=== PATIENT | female | born 1965 | race Asian ===

== ENCOUNTER 2018-05-26 14:23 | Emergency (ER) | payer OTHER ==
--- NOTE | 2018-05-26 15:49 | CPEKG ---
Heart Rate: 57 RR Interval: 1053 P-R Interval: 164 QRSD Interval: 96 QT Interval: 440 QTC Interval: 429 P [place]: 56 QRS [place]: 66 T Wave [place]: 11 EKG Severity - BORDERLINE ECG - EKG Impression: SINUS RHYTHM EKG Impression: PROBABLE LEFT ATRIAL ABNORMALITY Electronically Signed By: Jyothi Nguyen 27-May-2018 00:43:17
[2018-05-26] MEDS ORDERED: NS 500 ML IV ONE (16:04)
--- NOTE | 2018-05-26 16:08 | EDPHY ---
HPI/HX/ROS/PE/MDM Narrative: CHIEF COMPLAINT: Dizziness HISTORY OF PRESENT ILLNESS: The patient is a 52 y/o female arriving with her family complaining of acute onset dizziness and near-syncope around 13:00 today , about 4 hours ago. She was standing at work when symptoms began. She describes room-spinning dizziness, nausea, and difficulty balancing causing her to feel like she would fall to the left. She had associated tingling on the left side of her face with pressure in her left ear, tingling in her extremities , and global weakness. She had an inconsistent report of a racing heart earlier in the day that she attributed to caffeine use. She also mentions neck discomfort last night with no preceding injury or obvious precipitating cause. The dizziness this afternoon lasted for about 1-2 hours and was aggravated by walking or looking down. She took an 81mg aspirin for symptoms today. This is the 3rd or 4th episode of similar symptoms this month, though symptoms were more severe today. She saw her PCP after the first episode about 2 weeks ago and reports she had a normal EKG and lab work. No imaging was performed at that time. She did not receive a diagnosis and thought symptoms were possibly related to stress around her mother's recent ICU admission. No fever, chills, chest pain, shortness of breath, palpitations, vomiting, diarrhea, urinary complaints, lightheadedness. No known cardiac disease, diagnosed hypertension, diabetes. REVIEW OF SYSTEMS: Aside from elements discussed in the HPI, a comprehensive 10-point review of systems was reviewed and is negative. PAST MEDICAL HISTORY: Denies SOCIAL HISTORY: Family at bedside. Employed in [place]. PCP: Dr. Jesenia Max in [place] VITAL SIGNS: Reviewed by me GENERAL: Well-developed, well-nourished, resting comfortably in no respiratory distress. HEENT: Atraumatic. Eyes: No icterus, no injection, no nystagmus. EOMI. Mouth: moist mucous membranes. No erythema or lesions. Neck: supple with no adenopathy. No bruit. Ears: Right TM scarring. LUNGS: Clear to auscultation bilaterally, no wheezes, rhonchi or rales. CARDIAC: Regular rate and rhythm, no rubs, murmurs or gallops. ABDOMEN: Soft, nontender, nondistended, bowel sounds normal. BACK: No CVA tenderness. EXTREMITIES: No trauma. No edema. Range of motion is normal throughout. NEURO: Alert and oriented, cranial nerves 2-12 intact. Normal motor strength throughout. Normal sensation to light touch. Normal xpkmzi-[id number] bilaterally. Difficulty with rcvo-gf-[id number] bilaterally. No weakness. SKIN: Warm and dry, no rash. PSYCHIATRIC: Normal mentation, no agitation. Portions of this note were transcribed by a medical assistant supervisor. I personally performed a history, physical exam, medical decision making, and confirmed accuracy of information the transcribed note. ED Course: This is a normally healthy 52 y/o female who presents with multiple complaints, but is primarily concerned about repeated episodes of room-spinning dizziness over the last month. Her exam is largely nonfocal, though she has some difficulty with amlz-ak-xfhl motion bilaterally. Plan for IV, labs, EKG, neuro imaging, and symptom management. 25mg PO Meclizine and 500mL IV NS ordered. The 12 lead EKG was interpreted by myself. Sinus mechanism rate 57. See hard copy and/or "tracemaster" electronic copy for interpretation. Troponin 0.00. Head CT: negative Head CTA: negative Neck CTA: negative 1800: Reassessed patient and discussed findings. She is feeling improved since Meclizine and was able to walk to the bathroom without issue. She continues to complain of mild tingling on the left side of her face near her ear and reports she had clear fluid draining from her right ear this morning. Otherwise she feels back to baseline. 1910: Consulted with Dr. Serna, neurology. He recommends brain MRI if she is still symptomatic. MRI is negative. Reassessed patient and discussed findings. She will be discharged with standard dizziness care and follow up instructions. She is scheduled to see her PCP tomorrow and I've advised her to keep this appointment. Return precautions discussed. She is comfortable with this plan. Patient was advised to use meclizine for symptom control and was given a prepack of Valium to use as needed for severe vertiginous symptoms. MDM: Differential diagnosis of the patient's dizziness was considered including but not limited to peripheral and central causes of vertigo, cardiac arrhythmias, cardiac ischemia, electrolyte disturbances, neurologic causes, orthostatic causes including dehydration, and blood loss. - Data Points Imaging Results: Imaging Impressions Head CT 05/26/18 16:05 Impression: Normal CT scan of the head. Specifically, negative for intracranial hemorrhage. Results called and discussed with Jyothi Nguyen MD on 05/26/2018 at 17:38. Head CTA 05/26/18 16:05 Impression: Negative CT angiography of the neck with no arterial occlusive disease identified. Specifically, negative for vertebral artery dissection CT Angiography of the Head With Attention to the [place] Reason for examination: See clinical history above. Technique: A spiral acquisition was performed from the base of the brain to the vertex during rapid intravenous administration of 85 mL of Isovue-370. This contrast volume was utilized for evaluation of the neck and head. Axial images are obtained at 0.6 mm thickness and the examination is reviewed on the workstation in multiple window and level settings. Sagittal and coronal reformats are performed and three-dimensional reformations are performed by the radiologist on the workstation. Dose reduction techniques were utilized. Findings: There is excellent arterial opacification. The great vessels at the base of the brain are normal in appearance. The anterior and middle cerebral arteries appear normal. The [place] is intact with both anterior and posterior communicating arteries identified. The basilar artery as well as posterior cerebral arteries are normal. No regions of stenosis are identified. No hemorrhages are seen and no vascular malformations are identified. No areas of abnormal perfusion are identified and there are no findings to suggest cortical ischemia. Impression: Normal CT angiography of the head with attention to the great vessels of the [place]. Note: All stenoses are calculated using NASCET Criteria. Results called and discussed with Jyothi Nguyen MD on 05/26/2018 at 17:56. Neck CTA 05/26/18 16:05 Impression: Negative CT angiography of the neck with no arterial occlusive disease identified. Specifically, negative for vertebral artery dissection CT Angiography of the Head With Attention to the [place] Reason for examination: See clinical history above. Technique: A spiral acquisition was performed from the base of the brain to the vertex during rapid intravenous administration of 85 mL of Isovue-370. This contrast volume was utilized for evaluation of the neck and head. Axial images are obtained at 0.6 mm thickness and the examination is reviewed on the workstation in multiple window and level settings. Sagittal and coronal reformats are performed and three-dimensional reformations are performed by the radiologist on the workstation. Dose reduction techniques were utilized. Findings: There is excellent arterial opacification. The great vessels at the base of the brain are normal in appearance. The anterior and middle cerebral arteries appear normal. The [place] is intact with both anterior and posterior communicating arteries identified. The basilar artery as well as posterior cerebral arteries are normal. No regions of stenosis are identified. No hemorrhages are seen and no vascular malformations are identified. No areas of abnormal perfusion are identified and there are no findings to suggest cortical ischemia. Impression: Normal CT angiography of the head with attention to the great vessels of the [place]. Note: All stenoses are calculated using NASCET Criteria. Results called and discussed with Jyothi Nguyen MD on 05/26/2018 at 17:56. Brain MRI 05/26/18 19:18 Impression: Normal MRI of the brain without contrast. Results called and discussed with Jyothi Nguyen MD, at 05/26/2018 20:58 Imaging: Discussed imaging studies w/ creative strategist Radiologist, I viewed and interpreted images myself Laboratory Results: Laboratory Results 05/26/18 15:51 05/26/18 15:51 05/26/18 05/26/18 05/26/18 15:57 15:51 15:51 WBC 5.72 10^3/uL 10^3/uL (3.80-9.50) RBC 6.15 10^6/uL H 10^6/uL (4.18-5.33) Hgb 12.7 g/dL g/dL (12.6-16.3) Hct 42.0 % % (38.0-47.0) MCV 68.3 fL L fL (81.5-99.8) MCH 20.7 pg L pg (27.9-34.1) MCHC 30.2 g/dL L g/dL (32.4-36.7) RDW 16.0 % H % (11.5-15.2) Plt Count 213 10^3/uL 10^3/uL (150-400) MPV 11.4 fL fL (8.7-11.7) Neut % (Auto) 70.3 % % (39.3-74.2) Lymph % (Auto) 19.8 % % (15.0-45.0) [place] % (Auto) 6.6 % % (4.5-13.0) Eos % (Auto) 2.1 % % (0.6-7.6) Baso % (Auto) 0.9 % % (0.3-1.7) Nucleat RBC Rel Count 0.0 % % (0.0-0.2) Absolute Neuts (auto) 4.02 10^3/uL 10^3/uL (1.70-6.50) Absolute Lymphs (auto) 1.13 10^3/uL 10^3/uL (1.00-3.00) Absolute Monos (auto) 0.38 10^3/uL 10^3/uL (0.30-0.80) Absolute Eos (auto) 0.12 10^3/uL 10^3/uL (0.03-0.40) Absolute Basos (auto) 0.05 10^3/uL 10^3/uL (0.02-0.10) Absolute Nucleated RBC 0.00 10^3/uL 10^3/uL (0-0.01) Immature Gran % 0.3 % % (0.0-1.1) Immature Gran # 0.02 10^3/uL 10^3/uL (0.00-0.10) Platelet Estimate ADEQUATE (ADEQ) Hypochromasia 2+ H Microcytic Cells 2+ H Smear Review By Pending Sodium 142 mEq/L mEq/L (135-145) Potassium 3.5 mEq/L mEq/L (3.3-5.0) Chloride 105 mEq/L mEq/L (97-110) Carbon Dioxide 24 mEq/l mEq/l (22-31) Anion Gap 13 mEq/L mEq/L (8-16) BUN 11 mg/dL mg/dL (7-23) Creatinine 0.7 mg/dL mg/dL (0.6-1.0) Estimated GFR > 60 Glucose 97 mg/dL mg/dL (70-100) Calcium 9.6 mg/dL mg/dL (8.5-10.4) POC Troponin I 0.00 ng/mL ng/mL (0.00-0.08) Medications Given: Discontinued Medications Diazepam (Valium) 2 mg PO EDNOW ONE Stop: 05/26/18 18:09 Last Admin: 05/26/18 18:44 Dose: 2 mg Diazepam (Valium 5 Mg Prepack#4) 1 btl TAKEHOME EDNOW ONE Stop: 05/26/18 21:12 Last Admin: 05/26/18 21:31 Dose: 1 btl Sodium Chloride (Ns) 500 mls @ 1,000 mls/hr IV EDNOW ONE PRN Reason: Protocol Stop: 05/26/18 16:33 Last Admin: 05/26/18 16:48 Dose: 500 mls Meclizine HCl (Meclizine Hcl) 25 mg PO EDNOW ONE Stop: 05/26/18 16:27 Last Admin: 05/26/18 16:49 Dose: 25 mg Meclizine HCl (Meclizine Hcl) 25 mg PO EDNOW ONE Stop: 05/26/18 21:12 Last Admin: 05/26/18 21:31 Dose: 25 mg Point of Care Test Results: Chemistry 05/26/18 15:57 POC Troponin I 0.00 ng/mL ng/mL (0.00-0.08) General Time Seen by Provider: 05/26/18 15:47 Initial Vital Signs: Initial Vital Signs Temperature (C) 36.3 C 05/26/18 14:31 Heart Rate 60 05/26/18 14:31 Respiratory Rate 16 05/26/18 14:31 Blood Pressure 169/92 H 05/26/18 14:31 O2 Sat (%) 99 05/26/18 14:31 O2 Delivery Mode Room Air Allergies/Adverse Reactions: ciprofloxacin Allergy (Verified 05/26/18 14:31) peanut Allergy (Verified 05/26/18 14:31) Home Medications: Medication Instructions Recorded NK [No Known Home Meds] 05/26/18 Departure - Departure Disposition: Home, Routine, Self-Care Clinical Impression: Dizziness, Facial tingling, probable vertigo Condition: Good Instructions: Diazepam (By mouth), Meclizine (By mouth), Vertigo (ED), Dizziness (ED) Additional Instructions: 1. Take Meclizine as directed for dizziness. Use Flonase nasal spray, available [id number], as directed on the packaging. 2. Keep your appointment with your primary care provider scheduled for tomorrow and discuss your symptoms today. 3. Return to the ED for worsening of condition. Referrals: JESENIA MAX [Primary Care Provider] - As per Instructions Stand Alone Forms: Work Excuse Report Scribed for: Jyothi M Feldhaus Report Scribed by: Niya Jarrett Date of Report: 05/26/18 Time of Report: 16:08
[2018-05-26] MEDS ORDERED: MECLIZINE HCL 25 MG TAB PO ONE ×2 (16:26→21:11)
[2018-05-26 16:50] LABS: PLATELET COUNT 213 10^3/uL (150-400)
[2018-05-26] MEDS ORDERED: IOPAMIDOL (ISOVUE 370) 100 ML BTL IV ONE (17:00)
[2018-05-26] MEDS ORDERED: DIAZEPAM 2 MG TAB PO ONE (18:08)
[2018-05-26] MEDS ORDERED: DIAZEPAM 5 MG PREPACK#4 BTL TAKEHOME ONE (21:11)
[2018-05-26 21:45] VITALS: BP 150/91
== END 2018-05-26 21:45 | disposition home or self-care (01) ==
DX: R42 Dizziness and giddiness (principal); E86.9 Volume depletion, unspecified; R20.2 Paresthesia of skin; Z91.010 Allergy to peanuts
CPT/HCPCS: 84484-PO; Q9967

== ENCOUNTER 2019-03-09 16:25 | Observation (INO) | payer BC, OTHER ==
--- NOTE | 2019-03-09 17:46 | EDPHY ---
H & P Stated Complaint: Feels like "heart is fluttering" - Personal History LMP (Females 10-55): Unknown Current Tetanus/Diphtheria Vaccine: Yes Current Tetanus Diphtheria and Acellular Pertussis (TDAP): Yes - Medical/Surgical History Hx Asthma: No Hx Chronic Respiratory Disease: No Hx Diabetes: No Hx Cardiac Disease: No Hx Renal Disease: No Hx Cirrhosis: No Hx Alcoholism: No Hx HIV/AIDS: No Hx Splenectomy or Spleen Trauma: No Other PMH: denies - Social History Smoking Status: Never smoked <Lis Mujica - Last Filed: 03/09/19 19:47> <Joselo Contreras - Last Filed: 03/09/19 20:07> Time Seen by Provider: 03/09/19 17:02 HPI/ROS: CHIEF COMPLAINT: Epigastric and anterior neck pressure HISTORY OF PRESENT ILLNESS: 53-year-old female history of hypertension arrives via ambulance. Patient describes that after getting off work at approximately 3 :45 p.m. Today she developed a pressure sensation her epigastrium chest and anterior neck which lasted approximately 15 min. She experience concurrent anxiety, chewed 2 baby aspirin, tried to drive to the hospital however was not feeling well. Pulled her car over and called 911. Symptoms overall lasted 15- 20 minutes. She has by and large asymptomatic when I interview her. History of hypertension, prescribed nifedipine 10 mg 3 times daily 2 weeks ago. She took 1 dose but did not like the way it made her feel and subsequently stopped taking it. Denies: Recent travel, malignancy, recent illness, immobilization, leg pain or cramping or swelling, VTE history PRIMARY CARE PROVIDER: Dr. Max in [place], [place] REVIEW OF SYSTEMS: 10 systems reviewed and negative with the exception of the elements mentioned in the history of present illness PAST MEDICAL & SURGICAL HISTORY: hypertension, currently untreated SOCIAL HISTORY: Nonsmoker. No drug use. . Works as a laser forensic scientist FAMILY HISTORY: Both parents alive, no history of coronary artery disease or premature coronary artery disease PHYSICAL EXAM (Prior to examination, patient consented to physical exam, hands were washed and my usual and customary physical exam procedures followed) 1) GENERAL: Well-developed, well-nourished, alert and oriented. Appears to be in no acute distress. 2) HEAD: Normocephalic, atraumatic 3) HEENT: Pupils equal, round, reactive to light bilaterally. Sclera anicteric. Nasopharynx, oropharynx, clear, no lesions. MoistDry mucous membranes. Ears bilaterally with normal tympanic membranes. 4) NECK: Full range of motion, no meningeal signs. No carotid bruit 5) LUNGS: Clear auscultation bilaterally, no wheezes, no rhonchi, no retractions. 6) HEART: Regular rate and rhythm, no murmur, no heave, no gallop. 7) ABDOMEN: No guarding, no rebound, no focal tenderness, negative McBurney's, negative Morley's, negative Rovsing's, negative peritoneal sign, negative Homans no palpable cord 8) MUSCULOSKELETAL: Moving all extremities, no focal areas of tenderness, no obvious trauma. No peripheral edema or discoloration. 9) BACK: No CVA tenderness, no midline vertebral tenderness, no fluctuance, no step-off, no obvious trauma, no visual or palpable abnormality. 10) SKIN: No rash, no petechiae. 11) Psychiatric: Patient is oriented X 3, there is no agitation. DIFFERENTIAL DIAGNOSIS: In no particular order, including but not limited to myocardial ischemia, pulmonary embolus, chest wall pain, pleural inflammation and pulmonary infectious causes. (Lis Mujica) Constitutional: Initial Vital Signs Temperature (C) 36.5 C 03/09/19 16:29 Heart Rate 78 03/09/19 16:29 Respiratory Rate 16 03/09/19 16:29 Blood Pressure 185/98 H 03/09/19 16:29 O2 Sat (%) 99 03/09/19 16:29 O2 Delivery Mode Room Air Allergies/Adverse Reactions: asparagus Allergy (Verified 03/09/19 16:29) ciprofloxacin Allergy (Verified 05/26/18 14:31) peanut Allergy (Verified 05/26/18 14:31) henderson pepper Allergy (Uncoded 03/09/19 16:29) Home Medications: Medication Instructions Recorded NIFEdipine [Procardia 10 mg (*)] 10 mg PO TID 03/09/19 Medical Decision Making <Lis Mujica - Last Filed: 03/09/19 19:47> - Diagnostics Imaging: I viewed and interpreted images myself <Joselo Contreras - Last Filed: 03/09/19 20:07> - Diagnostics Imaging Results: Imaging Impressions Chest X-Ray 03/09/19 17:43 Impression: Chest negative for acute abnormality. ED Course/Re-evaluation: 7:15 p.m.: Patient has been re-evaluated with serial exams. We discussed her low Heart score. We discussed options including discharge home, recheck troponin. The patient and family expressed concern about being discharged home albeit in the presence of low risk Heart score. We discussed hospital admission which she is agreeable with. 7:20 p.m.: Consultation with hospitalist Dr. Rowdy Maher will admit patient for chest pain evaluation (Lis Mujica) Other Provider: PHYSICIAN DOCUMENTATION: The patient was evaluated and managed by the Physician Lpn Rn and myself. I have reviewed the chart and agree with the findings and plan of care as documented. In addition, I examined the patient myself at 1825. History confirmed as fluttering heart with epigastric pressure. Physical findings as follows: Regular rate rhythm without murmur. Labs reviewed with the patient including normal LFT and lipase and D-dimer and troponin. EKG nonischemic. Options discussed with patient and family, they are uncomfortable with outpatient workup. I am the secondary supervising physician. (Joselo Contreras) - Data Points Laboratory Results: Laboratory Results 03/09/19 17:55 03/09/19 17:55 03/09/19 03/09/19 03/09/19 18:15 17:55 17:55 WBC RBC Hgb Hct MCV MCH MCHC RDW Plt Count MPV Neut % (Auto) Lymph % (Auto) [place] % (Auto) Eos % (Auto) Baso % (Auto) Nucleat RBC Rel Count Absolute Neuts (auto) Absolute Lymphs (auto) Absolute Monos (auto) Absolute Eos (auto) Absolute Basos (auto) Absolute Nucleated RBC Immature Gran % Immature Gran # Platelet Estimate Elliptocytes Smear Review By D-Dimer Sodium 139 mEq/L mEq/L (135-145) Potassium 3.3 mEq/L L mEq/L (3.5-5.2) Chloride 102 mEq/L mEq/L (97-110) Carbon Dioxide 24 mEq/l mEq/l (22-31) Anion Gap 13 mEq/L mEq/L (6-14) BUN 15 mg/dL mg/dL (7-23) Creatinine 0.8 mg/dL mg/dL (0.6-1.0) Estimated GFR > 60 Glucose 105 mg/dL H mg/dL (70-100) Calcium 8.8 mg/dL mg/dL (8.5-10.4) Total Bilirubin 0.2 mg/dL mg/dL (0.1-1.4) Conjugated Bilirubin 0.2 mg/dL mg/dL (0.0-0.5) Unconjugated Bilirubin 0.0 mg/dL mg/dL (0.0-1.1) AST 30 IU/L IU/L (14-46) ALT 35 IU/L IU/L (9-52) Alkaline Phosphatase 104 IU/L IU/L (38-126) POC Troponin I 0.00 ng/mL ng/mL (0.00-0.08) Total Protein 7.3 g/dL g/dL (6.3-8.2) Albumin 4.5 g/dL g/dL (3.5-5.0) Lipase 112 IU/L IU/L (23-300) Beta HCG, Qual NEGATIVE 03/09/19 03/09/19 17:55 17:55 WBC 5.87 10^3/uL 10^3/uL (3.80-9.50) RBC 5.78 10^6/uL H 10^6/uL (4.18-5.33) Hgb 11.9 g/dL L g/dL (12.6-16.3) Hct 39.3 % % (38.0-47.0) MCV 68.0 fL L fL (81.5-99.8) MCH 20.6 pg L pg (27.9-34.1) MCHC 30.3 g/dL L g/dL (32.4-36.7) RDW 15.9 % H % (11.5-15.2) Plt Count 213 10^3/uL 10^3/uL (150-400) MPV 10.7 fL fL (8.7-11.7) Neut % (Auto) 67.7 % % (39.3-74.2) Lymph % (Auto) 22.3 % % (15.0-45.0) [place] % (Auto) 8.3 % % (4.5-13.0) Eos % (Auto) 1.2 % % (0.6-7.6) Baso % (Auto) 0.3 % % (0.3-1.7) Nucleat RBC Rel Count 0.0 % % (0.0-0.2) Absolute Neuts (auto) 3.97 10^3/uL 10^3/uL (1.70-6.50) Absolute Lymphs (auto) 1.31 10^3/uL 10^3/uL (1.00-3.00) Absolute Monos (auto) 0.49 10^3/uL 10^3/uL (0.30-0.80) Absolute Eos (auto) 0.07 10^3/uL 10^3/uL (0.03-0.40) Absolute Basos (auto) 0.02 10^3/uL 10^3/uL (0.02-0.10) Absolute Nucleated RBC 0.00 10^3/uL 10^3/uL (0-0.01) Immature Gran % 0.2 % % (0.0-1.1) Immature Gran # 0.01 10^3/uL 10^3/uL (0.00-0.10) Platelet Estimate ADEQUATE (ADEQ) Elliptocytes 1+ H Smear Review By Pending D-Dimer 0.35 ug/mLFEU ug/mLFEU (0.00-0.50) Sodium Potassium Chloride Carbon Dioxide Anion Gap BUN Creatinine Estimated GFR Glucose Calcium Total Bilirubin Conjugated Bilirubin Unconjugated Bilirubin AST ALT Alkaline Phosphatase POC Troponin I Total Protein Albumin Lipase Beta HCG, Qual Medications Given: Discontinued Medications Al Hydroxide/Mg Hydroxide (Maalox Susp) 30 ml PO ONCE ONE Stop: 03/09/19 19:10 Last Admin: 03/09/19 19:28 Dose: 30 ml Hyoscyamine Sulfate (Levsin, Hyomax-Sl) 0.25 mg PO ONCE ONE Stop: 03/09/19 19:10 Last Admin: 03/09/19 19:28 Dose: 0.25 mg Lidocaine (Lidocaine 2% Viscous) 15 ml PO ONCE ONE Stop: 03/09/19 19:10 Last Admin: 03/09/19 19:28 Dose: 15 ml Point of Care Test Results: Chemistry 03/09/19 18:15 POC Troponin I 0.00 ng/mL ng/mL (0.00-0.08) Departure <Lis Mujica - Last Filed: 03/09/19 19:47> <Joselo Contreras - Last Filed: 03/09/19 20:07> - Departure Disposition: [facility] [place] In[facility] Acute Clinical Impression: Chest pain Qualifiers: Chest pain type: other chest pain Qualified Code(s): R07.89 - Other chest pain Condition: Good
[2019-03-09 18:07] LABS: PLATELET COUNT 213 10^3/uL (150-400)
--- NOTE | 2019-03-09 18:14 | CPEKG ---
Test Reason : OPEN Blood Pressure : / mmHG Vent. Rate : 065 BPM Atrial Rate : 064 BPM P-R Int : 166 ms QRS Dur : 100 ms QT Int : 420 ms P-R-T Axes : 058 069 009 degrees QTc Int : 437 ms Sinus rhythm Probable left atrial enlargement Left ventricular hypertrophy Confirmed by Audra Cornelius ([id number]) on 03/09/2019 6:13:30 PM Referred By: AUDRA CORNELIUS Confirmed By:Audra Cornelius
[2019-03-09] MEDS ORDERED: MAG HYDROX/AL HYDROX/SIMETH 30 ML UDCUP PO ONE (19:09)
[2019-03-09] MEDS ORDERED: HYOSCYAMINE SULFATE 0.125 MG TAB PO ONE (19:09)
[2019-03-09] MEDS ORDERED: LIDOCAINE 2% VISCOUS 15 ML UDCUP PO ONE (19:09)
[2019-03-09] MEDS ORDERED: ACETAMINOPHEN 325 MG TAB PO PRN (20:28)
[2019-03-09] MEDS ORDERED: ONDANSETRON DISINTEGRATING 4 MG TAB PO PRN (20:28)
[2019-03-09] MEDS ORDERED: ONDANSETRON 4 MG/2 ML VIAL IVP PRN (20:28)
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
[2019-03-09] MEDS ORDERED: PROTOCOL POTASSIUM 1 DOSE MISC PRN (21:19)
[2019-03-09] MEDS ORDERED: POTASSIUM CL 20 MEQ PKT PO ONE (21:20)
[2019-03-09] MEDS ORDERED: MAG HYDROX/AL HYDROX/SIMETH 30 ML UDCUP PO PRN (21:27)
[2019-03-09] MEDS ORDERED: POTASSIUM CL 20 MEQ PKT PO SCH (21:30)
[2019-03-09] MEDS ORDERED: hydrALAZINE 10 MG TAB PO PRN (21:42)
--- NOTE | 2019-03-09 23:40 | GHP ---
[f rep st] HISTORY AND PHYSICAL DATE OF ADMISSION: 03/09/2019 CHIEF COMPLAINT: Chest pain, palpitations. HISTORY OF PRESENT ILLNESS: The patient is a 53-year-old female with a past medical history of anxie ty who presented to the [facility] Emergency Room after noticing her heart racing and experiencing throat discomfort. She has a history of hypertension of uncertain control. The sympto ms developed today while she was driving and after 15-20 minutes presented to the emergency room for additional evaluation. Her initial workup including D-dimer, troponin, and ECG was unremarkable. Fo r details on past medical history, past surgical history, medications, allergies, family history, soc ial history, and review of systems, please also refer to notation documentation by Екатерина Harris MD . EXAM: VITAL SIGNS: Temperature 36.5, blood pressure 166/97, heart rate 64, respirations 16, saturat ing 98% on room air. GENERAL: Patient appears anxious, nontoxic appearing. HEENT: Extraocular mov ements appear intact. No scleral icterus. NECK: Supple. No thyroid enlargement appreciated. CHES T: Clear to auscultation with normal respiratory effort. HEART: Regular. No murmurs noted. ABDOM EN: Soft, nontender, nondistended. : No Carbone catheter in place. EXTREMITIES: No significant p itting edema or calf pain with palpation. NEUROLOGIC: Cranial nerves 2-12 appear grossly intact wit h 5/5 strength in extremities. ASSESSMENT AND PLAN: Palpitations with associated chest pain: Her TSH was within normal limits at 1 .8. Initial workup including troponin, ECG, and D-dimer is reassuring. She does have risk factors o f hypertension, which I am unsure how well controlled this is. I recommend telemetry monitoring over night, echo and exercise stress test tomorrow morning. Consider discharge with outpatient cardiac mo nitoring. We did discuss the possibility that this may have been anxiety or panic related. We will proceed with the workup to ensure no cardiac findings. Otherwise, I agree with the assessment and pl an as detailed by Jyothi Harris MD, as well. /[id number]/MODL
[2019-03-10] MEDS ORDERED: MAG HYDROX/AL HYDROX/SIMETH 30 ML UDCUP PO ONE (09:35)
[2019-03-10] MEDS ORDERED: HYOSCYAMINE SULFATE 0.125 MG TAB PO ONE (09:35)
[2019-03-10] MEDS ORDERED: LIDOCAINE 2% VISCOUS 15 ML UDCUP PO ONE (09:35)
--- NOTE | 2019-03-10 09:44 | HOSPPROG ---
Hospitalist Progress Note Assessment/Plan: Atypical CP - doubt cardiac etiology. This is consistent with GI source such as esophagitis or gastritis. Pt recently had upper GI / barium swallow at [facility]. She was referred to outpt GI, but has not scheduled yet. She is not vomiting, but symptoms are significant. -rpt GI cocktail, this was helpful last night -Pepcid -she refuses protonix, says it gives her panic attacks, she'll take her home omeprazole Dispo - obs for now. Will obtain records from [facility] and consider inpt GI consult if stricture is noted. Objective: Vital Signs Temp Pulse Resp BP Pulse Ox 36.8 C 56 L 18 96/66 L 96 03/10/19 08:36 03/10/19 08:36 03/10/19 08:36 03/10/19 08:36 03/10/19 08:36 Laboratory Results 03/10/19 04:20 03/09/19 03/10/19 03/11/19 05:59 05:59 05:59 Intake Total 450 Balance 450 ICD10 Worksheet Patient Problems: Problems Problem Status Onset Chest pain Acute
[2019-03-10] MEDS ORDERED: FAMOTIDINE 20 MG TAB PO SCH (09:45)
--- NOTE | 2019-03-10 11:14 | ECHO ---
[email or web address] [address] [address] Main: [phone] Echocardiography Examination Transthoracic Name: LESLY ROBERTSON MR#: [id number] Study Date: 03/10/2019 Study Time: 10:03 AM Date of : 1965 Age: 53 year(s) Height: 154.9 cm (61 in.) Weight: 58.97 kg (130 lb.) BSA: 1.57 m2 Gender: Female Examination: Echo Contrast: Image Quality: Adequate Rhythm: Heart Rate: BP: 119 mmHg/73 mmHg Indication: Chest Pain Procedure Staff Referring Physician: Fly Rail Operator: Simi Daniels [facility] Reading Physician: Jeffery Barnes MD Requesting Provider: Ordering Physician: Екатерина Harris Indication: Chest Pain Measurements Chambers AV/MV Label Value Normal Value Label Value Normal Value LVDd, 2D 4.5 cm (3.9cm - 5.3cm) AV PGmean 3 mmHg LVDs, 2D 2.5 cm (2.1cm - 4cm) AV Vmax 1.19 m/s IVSd, 2D 0.7 cm (0.6cm - 1.1cm) MV E Vmax 0.78 m/s LVPWd, 2D 0.8 cm MV A Vmax 0.83 m/s LVEF, 2D 75 % (54% - 74%) MV E/A 0.94 LA Volume, BP 38 ml (22ml - 52ml) MV E/E' lateral 10.1 LADs, 2D 3.2 cm (2.7cm - 3.8cm) MV E/E' septal 11.7 (0.5 - 1.7) LAESV index, BP 24.2 ml/m2 MV E' septal 0.07 m/s Additional Vessels MV E' lateral 0.08 m/s Label Value Normal Value MV E/E' mean 10.4 AoAsc 3.2 cm MV E' mean 0.08 m/s AoRoot, MM 3 cm (2.2cm - 3.7cm) TV/PV Label Value Normal Value RA Pressure 5 mmHg RVSP 23 mmHg TR Pmax 18 mmHg TR Vmax 2.12 m/s Patient: LESLY ROBERTSON Study Date: 03/10/2019 Page 1 of 3 10:03 AM Conclusions (1) Left ventricular systolic ejection fraction was normal (65%) - no LVH (2) Normal RV size and function (3) Normal atrial dimensions (4) Mild MR (5) Trileaflet aortic valve without sclerosis or insufficiency (6) Mild TR - RVSP was normal (7) Ascending aorta was 3.2 cm (8) No pericardial effusion Findings Left Ventricle: Left ventricle is normal in size. Normal global systolic left ventricular function. EF range is estimated at 65 % - 70 %. Left ventricle wall thickness is normal. There are no regional wall motion abnormalities. Left ventricular diastolic function parameters are normal. IVS: The septum is intact. Right Ventricle: Normal size right ventricle. Right ventricular systolic function is normal. Left Atrium: The left atrium is normal in size. IAS: Normal appearing atrial septum. Right Atrium: The right atrium is normal in size. Probable Chiari's network in right atrium. Mitral Valve: Mitral valve appears structurally normal. Mild mitral regurgitation. No mitral valve stenosis. Aortic Valve: Aortic leaflets exhibit normal cuspal separation. Trivial aortic regurgitation is present. There is no aortic stenosis. The aortic valve is trileaflet. Tricuspid Valve: Tricuspid valve leaflets are normal in appearance and function. Mild tricuspid regurgitation. No tricuspid valve stenosis. Right Ventricular systolic pressure is measured at 23 mmHg. Pulmonary artery pressure normal. Pulmonic Valve: Pulmonic leaflets exhibit normal cuspal separation. No pulmonic valve regurgitation is evident. There is no pulmonic valve stenosis. Aorta: The aorta is normal. The aortic root size in M-mode measures 3.0 cm. The ascending aorta measures 3.2 cm. Aorta Measurements AoRoot, MM is 3.0 cm. Pulmonary Artery: The pulmonary artery morphology appears normal. IVC: The inferior vena cava is normal in size and course. Pericardium: Trivial anterior pericardial effusion. No pleural effusion present. Exam Details Procedure Ordered: Echo Procedure Status: Routine study Image Quality: Adequate Facility Location: Cardiac Echo 1 Patient: ELSLY ROBERTSON Study Date: 03/10/2019 Page 2 of 3 10:03 AM (No Signature Object) Patient: LESLY ROBERTSON Study Date: 03/10/2019 Page 3 of 3 10:03 AM [id number]
[2019-03-10 14:14] VITALS: BP 120/75
--- NOTE | 2019-03-10 15:48 | ASMTLACE ---
LACE Length of stay for Answers: Less than 1 day current admission Acuity / Level of Answers: No Care: Did the patient have an inpatient admission? Comorbidities - select Answers: Other Notes: HTN all that apply # of Emergency department Answers: 1-2 visits in the last 6 months Score: 2 Date Signed: 03/10/2019 03:46 PM Electronically Signed By:Marie Avery RN
--- NOTE | 2019-03-10 16:11 | ASDISCHSUM ---
Discharge Information Plan Status:Home with No Needs Medically Cleared to Leave:03/10/2019 Discharge Date:03/10/2019 CM D/C Disposition:Home, Routine, Self-Care ADT D/C Disposition:Home, Routine, Self-Care Projected Discharge Date:03/10/2019 Transportation at D/C:Family Discharge Delay Reason: Follow-Up Date:03/10/2019 Discharge Slot: Final Diagnosis: Placement Information Patient Contact Information Contact Name:ADAL Relationship:Phan Address:[address] [place] Work Phone: City:[place] Alternate Phone: State/Zip Code:[place] [address] Email: Financial Information Financial Class:BCOP Primary Plan Desc: OUT OF STATE PPO Primary Plan Number:[id number] Secondary Plan Desc: Secondary Plan Number: Assessment Information LACE LACE Length of stay for Answers: Less than 1 day current admission Acuity / Level of Answers: No Care: Did the patient have an inpatient admission? Comorbidities - select Answers: Other Notes: HTN all that apply # of Emergency department Answers: 1-2 visits in the last 6 months Score: 2 Date Signed: 03/10/2019 03:46 PM Electronically Signed By:Marie Avery RN [facility] CM Progress Note CM Note CM Note Notes: 03/10/2019 Case Management Note Met w/pt and son. Pt admitted for chest pain. Pt lives with , children, mother and father. Pt PCP is Dr. Max. Froylan schafer cleared pt for safe discharge home. Case Management d/c poc: independent with follow up as directed. Date Signed: 03/10/2019 04:10 PM Electronically Signed By:Marie Avery, RN Intervention Information
== END 2019-03-10 16:19 | disposition home or self-care (01) ==
LOC: F2W 20:25
PROVIDERS: ADMIT Internal Medicine; ATTEND Hospitalist
DX: R07.89 Other chest pain (principal); R00.2 Palpitations; R10.13 Epigastric pain; E87.6 Hypokalemia; M54.5 Low back pain; I10 Essential (primary) hypertension; F41.9 Anxiety disorder, unspecified
CPT/HCPCS: 71046; 72100; 93005; 93306; 97165; 99285; G0378; 84484-ER